=== PATIENT | male | born 1990 | race Hispanic/Latino ===

== ENCOUNTER 2020-05-16 16:11 | Emergency (ER) | payer SELFPAY ==
[2020-05-16 17:12] LABS: Protime INR 1.07
[2020-05-16 17:13] LABS: Absolute Lymphocytes (CBC) 3.2 K/uL (0.7-4.9); Basophils % 0.9 % (0-1.3); Lymphocytes % 26.9 % (15.3-44.8); RBC Red Blood Cell Count 5.18 M/uL (4.33-5.43)
[2020-05-16 17:23] LABS: ALT/SGPT 36 U/L (12-78); AST/SGOT 11 U/L (15-37); Alkaline Phosphatase 66 U/L (45-117); BUN Blood Urea Nitrogen 11 mg/dL (7-18); Bicarbonate 26 mmol/L (21-32); Bilirubin Direct < 0.1 mg/dL (0-0.2); Bilirubin Total 0.3 mg/dL (0.2-1.0); Glucose Level 100 mg/dL (74-106); Magnesium 2.1 mg/dL (1.8-2.4); NT PRO-BNP 6 pg/mL (<125); Potassium 3.5 mmol/L (3.5-5.1); Protein, Total 7.5 g/dL (6.4-8.2); Sodium Level 140 mmol/L (136-145); Troponin (Emerg Dept Use Only) < 0.02 ng/mL (0.0-0.045)
--- NOTE | 2020-05-16 17:31 | RAD REPORT ---
EXAM DESCRIPTION: RAD - Chest Single View - 05/16/2020 5:05 pm CLINICAL HISTORY: CHEST PAIN TECHNIQUE: AP portable chest image was obtained 05/16/2020 5:05 pm . FINDINGS: Lungs are clear. Heart and vasculature are normal. No measurable pleural effusion and no p neumothorax. No acute bony abnormality seen. No acute aortic findings suspected. IMPRESSION: No acute cardiopulmonary process.
--- NOTE | 2020-05-16 18:27 | ER ---
Nurse's Notes [facility] Name: Kamari Yeung Age: 30 yrs Sex: Male : 1990 Arrival Date: 05/16/2020 Time: 16:14 Bed 15 Private MD: Diagnosis: Malaise and fatigue;Palpitations Presentation: 05/16 16:22 Chief complaint:. ll1 16:23 Chief complaint: Patient states: Chest pain and nausea for 1 day. Coronavirus screen: ll1 Client denies travel out of the [place] in the last 14 days. At this time, the client does not indicate any symptoms associated with coronavirus-19. Ebola Screen: Patient denies travel to an Ebola-affected area in the 21 days before illness onset. Initial Sepsis Screen: Does the patient meet any 2 criteria? No. Patient's initial sepsis screen is negative. Does the patient have a suspected source of infection? No. Patient's initial sepsis screen is negative. Risk Assessment: Do you want to hurt yourself or someone else? Patient reports no desire to harm self or others. Onset of symptoms was May 16, 2020. 16:23 Method Of Arrival: Ambulatory ll1 16:23 Acuity: DIANA 3 ll1 Triage Assessment: 20:18 Pain: Also complains of. bb Historical: - Allergies: 16:24 No Known Allergies; ll1 - PSHx: 16:24 None; ll1 - Immunization history:: Flu vaccine is not up to date. - Social history:: Smoking status: Patient denies any tobacco usage or history of. Screenin:49 Abuse screen: Denies threats or abuse. Denies injuries from another. Nutritional jl7 screening: No deficits noted. Tuberculosis screening: No symptoms or risk factors identified. Fall Risk IV access (20 points). Total Gomez Fall Scale indicates No Risk (0-24 pts). Assessment: 16:49 General: Anahy #[id number] with language line, LEFT SIDED CHEST PAIN, INTERMITTENT jl7 RADIATION TO LEFT SHOULDER X 7 MONTHS. NAUSEA, TEJADA AND FATIGUE STARTED TODAY. 16:50 General: Appears in no apparent distress. uncomfortable, Behavior is calm, cooperative, jl7 appropriate for age. Pain: Complains of pain in TEJADA Pain currently is 7 out of 10 on a pain scale. Pain began 1 hour ago. Neuro: Level of Consciousness is awake, alert, obeys commands, Oriented to person, place, time, situation. Cardiovascular: Reports chest pain, since x 7 MONTHS Patient's skin is warm and dry. Respiratory: Airway is patent Respiratory effort is even, unlabored, Respiratory pattern is regular, symmetrical. GI: Reports nausea, since THIS MORNING. Derm: Skin is pink, warm \T\ dry. 17:30 EENT: Throat is clear. jl7 20:17 Reassessment: Patient is alert, oriented x 3, equal unlabored respirations, skin bb warm/dry/pink. pt verbalized understanding of and agrees to plan of care discharge instructions given pt ambulated with steady gait to exit. Vital Signs: 16:23 BP 151 / 89; Pulse 87; Resp 17; Temp 99.5; Pulse Ox 96% ; Pain 7/10; ll1 17:39 BP 103 / 58; Pulse 80; Resp 15; Pulse Ox 100% ; jl7 19:24 BP 134 / 83 Supine; Pulse 85; Pulse Ox 100% on R/A; fu 19:25 BP 140 / 94 Sitting; Pulse 79; Pulse Ox 100% on R/A; fu 19:26 BP 136 / 80 Standing; Pulse 92; fu 20:19 BP 134 / 73; Pulse 93; Resp 16 S; Pulse Ox 100% on R/A; bb Clay Coma Score: 18:21 Eye Response: spontaneous(4). Verbal Response: oriented(5). Motor Response: obeys kb commands(6). Total: 15. ED Course: 16:14 Patient arrived in ED. ag5 16:23 Triage completed. ll1 16:24 Perlita Hawk, DESTINY is Primary Nurse. jl7 16:24 Arm band placed on Patient placed in an exam room, on a stretcher. ll1 16:33 [facility]C [facility] kb 16:33 Ted Lennon MD is Attending Physician. kb 16:39 EKG done, by ED staff, reviewed by Tresa [place]. Patient maintains SpO2 jp3 saturation greater than 95% on room air. 16:49 Patient has correct armband on for positive identification. Bed in low position. Call jl7 light in reach. Side rails up X 1. security monitor on. Pulse ox on. NIBP on. 16:55 Initial lab(s) drawn, by me, sent to lab. Inserted saline lock: 20 gauge in left jl7 antecubital area, using aseptic technique. Blood collected. 17:06 XRAY Chest (1 view) In Process Unspecified. EDMS 19:33 Primary Nurse role handed off by Perlita Hawk RN jl7 20:18 No provider procedures requiring assistance completed. IV discontinued, intact, bb bleeding controlled, No redness/swelling at site. Pressure dressing applied. Administered Medications: 19:23 Drug: NS 0.9% 1000 ml Route: IV; Rate: 1000 ml; Site: left antecubital; fu Outcome: 18:27 Discharge ordered by . ana laura 20:19 Discharged to home ambulatory. bb 20:19 Condition: stable 20:19 Discharge instructions given to patient, Instructed on discharge instructions, follow up and referral plans. Demonstrated understanding of instructions, follow-up care. 20:19 Patient left the ED. bb Signatures: Dispatcher [employer] EDKY Tresa Packer, SKIN FORMER-C SKIN FORMER-Lupis Mckenzie, RN RN Perlita Powers, RN RN jl7 Devonte Tejeda, RN RN Librado Hough jp3 Coreen Hinojosa ag5 Susie Weaver, RN RN ll1
--- NOTE | 2020-05-16 18:28 | EDPHYS ---
Physician Documentation [facility] Name: Kamari Yeung Age: 30 yrs Sex: Male : 1990 Arrival Date: 05/16/2020 Time: 16:14 Bed 15 Private MD: ED Physician Ted Lennon HPI: 05/16 18:24 This 30 yrs old Male presents to ER via Ambulatory with complaints of kb Headache, Chest Pain, Nausea/Vomiting. 18:24 The patient or guardian reports flu symptoms, fatigue, headache, sore throat. Onset: kb The symptoms/episode began/occurred 6 month(s) ago. Severity of symptoms: At their worst the symptoms were moderate, in the emergency department the symptoms are unchanged. Modifying factors: The symptoms are alleviated by nothing, the symptoms are aggravated by nothing. Associated signs and symptoms: Pertinent positives: nausea, sore throat, Pertinent negatives: chest pain, diarrhea, ear ache, fever, rhinorrhea, vomiting. The patient has not experienced similar symptoms in the past. The patient has not recently seen a physician. Pt reports headache for 2 months, sore throat for 6 months, fatigue for 2 months, nausea and palpitations earlier today, but resolved now. States he had the palpitations and nausea episode before but never got it checked out. Historical: - Allergies: 16:24 No Known Allergies; ll1 - PSHx: 16:24 None; ll1 - Immunization history:: Flu vaccine is not up to date. - Social history:: Smoking status: Patient denies any tobacco usage or history of. ROS: 18:22 Neck: Negative for injury, pain, and swelling, Respiratory: Negative for shortness of kb breath, cough, wheezing, and pleuritic chest pain, MS/Extremity: Negative for injury and deformity, Skin: Negative for injury, rash, and discoloration. 18:22 Constitutional: Positive for body aches, fatigue. 18:22 ENT: Positive for sore throat. 18:22 Cardiovascular: Positive for palpitations. 18:22 Abdomen/GI: Positive for nausea, Negative for abdominal pain, vomiting, diarrhea. 18:22 Neuro: Positive for headache. Exam: 16:50 ECG was reviewed by the Attending Physician. kb 18:21 Constitutional: This is a well developed, well nourished patient who is awake, alert, kb and in no acute distress. Head/Face: Normocephalic, atraumatic. ENT: Nares patent. No nasal discharge, no septal abnormalities noted. Tympanic membranes are normal and external auditory canals are clear. Oropharynx with no redness, swelling, or masses, exudates, or evidence of obstruction, uvula midline. Mucous membranes moist. Chest/axilla: Normal chest wall appearance and motion. Nontender with no deformity. No lesions are appreciated. Cardiovascular: Regular rate and rhythm with a normal S1 and S2. No gallops, murmurs, or rubs. Normal PMI, no JVD. No pulse deficits. Respiratory: Lungs have equal breath sounds bilaterally, clear to auscultation and percussion. No rales, rhonchi or wheezes noted. No increased work of breathing, no retractions or nasal flaring. Abdomen/GI: Soft, non-tender, with normal bowel sounds. No distension or tympany. No guarding or rebound. No evidence of tenderness throughout. Skin: Warm, dry with normal turgor. Normal color with no rashes, no lesions, and no evidence of cellulitis. MS/ Extremity: Pulses equal, no cyanosis. Neurovascular intact. Full, normal range of motion. Neuro: Awake and alert, GCS 15, oriented to person, place, time, and situation. Cranial nerves II-XII grossly intact. Motor strength 5/5 in all extremities. Sensory grossly intact. Cerebellar exam normal. Normal gait. Vital Signs: 16:23 BP 151 / 89; Pulse 87; Resp 17; Temp 99.5; Pulse Ox 96% ; Pain 7/10; ll1 17:39 BP 103 / 58; Pulse 80; Resp 15; Pulse Ox 100% ; jl7 19:24 BP 134 / 83 Supine; Pulse 85; Pulse Ox 100% on R/A; fu 19:25 BP 140 / 94 Sitting; Pulse 79; Pulse Ox 100% on R/A; fu 19:26 BP 136 / 80 Standing; Pulse 92; fu 20:19 BP 134 / 73; Pulse 93; Resp 16 S; Pulse Ox 100% on R/A; bb Ambrose Coma Score: 18:21 Eye Response: spontaneous(4). Verbal Response: oriented(5). Motor Response: obeys kb commands(6). Total: 15. MDM: 16:33 Patient medically screened. kb 18:21 Data reviewed: vital signs, nurses notes. Data interpreted: Pulse oximetry: on room air kb is 100 %. Interpretation: normal. 18:23 Counseling: I had a detailed discussion with the patient and/or guardian regarding: the kb historical points, exam findings, and any diagnostic results supporting the discharge/admit diagnosis, lab results, radiology results, the need for outpatient follow up, a family practitioner, to return to the emergency department if symptoms worsen or persist or if there are any questions or concerns that arise at home. 05/16 16:33 Order name: Basic Metabolic Panel; Complete Time: 17:25 kb 05/16 16:33 Order name: CBC with Diff; Complete Time: 17:18 kb 05/16 16:33 Order name: LFT's; Complete Time: 17:25 kb 05/16 16:33 Order name: Magnesium; Complete Time: 17:25 kb 05/16 16:33 Order name: NT PRO-BNP; Complete Time: 17:25 kb 05/16 16:33 Order name: PT-INR; Complete Time: 17:18 kb 05/16 16:33 Order name: Troponin (emerg Dept Use Only); Complete Time: 17:25 kb 05/16 16:33 Order name: XRAY Chest (1 view); Complete Time: 17:37 kb 05/16 16:34 Order name: EKG; Complete Time: 16:35 kb 05/16 17:18 Order name: [place] Screen Profile; Complete Time: 17:42 kb 05/16 17:18 Order name: TSH; Complete Time: 18:03 kb 05/16 17:18 Order name: Strep; Complete Time: 18:33 kb 05/16 18:30 Order name: Throat Culture EDTN 05/16 16:34 Order name: Cardiac monitoring; Complete Time: 16:38 kb 05/16 16:34 Order name: EKG - Nurse/Tech; Complete Time: 16:38 kb 05/16 16:34 Order name: IV Saline Lock; Complete Time: 17:35 kb 05/16 16:34 Order name: Labs collected and sent; Complete Time: 17:35 kb 05/16 16:34 Order name: O2 Per Protocol; Complete Time: 16:38 kb 05/16 16:34 Order name: O2 Sat Monitoring; Complete Time: 16:38 kb 05/16 18:31 Order name: Orthostatics; Complete Time: 19:27 kb EC:50 Rate is 89 beats/min. Rhythm is regular. QRS [place] is Normal. NE interval is normal at kb 152 msec. QRS interval is normal at 88 msec. QT interval is normal at 338 msec. Administered Medications: 19: Drug: NS 0.9% 1000 ml Route: IV; Rate: 1000 ml; Site: left antecubital; fu Disposition: 05/17 06:01 Co-signature as Attending Physician, Ted Lennon MD. rn Disposition: 05/16/20 18:27 Discharged to Home. Impression: Malaise and fatigue, Palpitations. - Condition is Stable. - Discharge Instructions: Fatigue, Palpitations, [id number]. - Medication Reconciliation Form, Thank You Letter, Antibiotic Education, Prescription Opioid Use form. - Follow up: Emergency Department; When: As needed; Reason: Worsening of condition. Follow up: Private Physician; When: 2 - 3 days; Reason: Recheck today's complaints, Continuance of care, Re-evaluation by your physician. Signatures: Dispatcher [employer] EDTresa Dockery, OPERATIONS SUPERVISOR 2ND SHIFT-C OPERATIONS SUPERVISOR 2ND SHIFT-CkLupis Zhu RN RN Ted Bajwa MD MD rn Umadhay, Felix, Susie Perez RN RN RN ll1 Corrections: (The following items were deleted from the chart) 05/16 20:19 18:27 05/16/2020 18:27 Discharged to Home. Impression: Malaise and fatigue; bb Palpitations. Condition is Stable. Forms are Medication Reconciliation Form, Thank You Letter, Antibiotic Education, Prescription Opioid Use. Follow up: Emergency Department; When: As needed; Reason: Worsening of condition. Follow up: Private Physician; When: 2 - 3 days; Reason: Recheck today's complaints, Continuance of care, Re-evaluation by your physician. kb
[2020-05-16] MEDS ORDERED: NA CHLORIDE 0.9% 1,000 ML ONE (19:28)
[2020-05-16 21:15] VITALS: TEMP 99.5
[2020-05-16 21:16] VITALS: O2SAT 100
[2020-05-16 21:23] VITALS: BP 134/73
--- NOTE | 2020-05-18 07:36 | EKG ---
Test Date: 2020-05-16 Test Time: 16:31:38 Shell Trim Tool Setter: DOMINICK MEASUREMENT RESULTS: Intervals: Rate: 89 AL: 152 QRSD: 88 QT: 338 QTc: 411 [place]: P: 61 AL: 152 QRS: 76 T: 52 INTERPRETIVE STATEMENTS: Normal sinus rhythm Normal ECG No previous ECG available for comparison Electronically Signed On 05-18-20 07:32:43 FINANCIAL AID DIRECTOR by Gulshan Palma
== END 2020-05-16 20:19 | disposition home or self-care (01) ==
LOC: ER 16:11
DX: R53.83 Other fatigue (principal); R00.2 Palpitations; R51.9 Headache, unspecified
CPT/HCPCS: 36415; 71045; 80048; 80076; 83735; 83880; 84443; 84484; 85025; 85610; 86308; 87070; 87081; 93005; 99285; J7030